=== PATIENT | female | born 1990 | race Caucasian/White ===

== ENCOUNTER 2020-05-29 19:37 | Emergency (ER) | payer OTHER, SELFPAY ==
--- NOTE | 2020-05-29 19:38 | ED.URI ---
HPI - URI/Sore Throat General Chief Complaint: Upper Respiratory Infection Stated Complaint: ear pain Time Seen by Provider: 05/29/20 19:38 Source: patient and RN notes reviewed History of Present Illness HPI Narrative: Patient is a 29-year-old female who presents the urgent care with complaints of a mild left-sided sore throat and left ear pain. Patient states that it started yesterday with the ear pain and she has taken Tylenol with some relief. Patient denies of putting anything in the ear such as Q-tips, peroxide, water. 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 Patient states she does have a history of strep throat. Denies of any other upper respiratory issues such as congestion, cough, shortness of breath. Denies of fever, chills, nausea, vomiting. No other acute complaints. No acute distress noted. Patient aware of the plan of care. Some parts of this dictation were generated by voice recognition software and may contain typographical and/or grammatical inaccuracies. Related Data Allergies Allergy/AdvReac Type Severity Reaction Status Date / Time dermabond Allergy Unknown Uncoded 05/29/20 19:51 Review of Systems Review of Systems: Narrative: CONSTITUTIONAL: Denies fever, chills, or sweats. EYES: Denies visual changes, redness, or discharge. ENT: Reports of left ear pain and sore throat CARDIOVASCULAR: Denies chest pain, palpitations, or edema. RESPIRATORY: Denies cough or dyspnea. GASTROINTESTINAL: Denies abdominal pain, nausea, vomiting, or diarrhea. GENITOURINARY: Denies dysuria or hematuria. SKIN: Denies rash or itching. MUSCULOSKELETAL: Denies back pain, joint pain, or myalgia. NEUROLOGIC: Denies headache, numbness, or weakness.All other systems reviewed are negative, except as documented in HPI. PMFSH Comments At the time of my signature, I reviewed and agree with the nursing past medical, surgical, social, and family history. There is no relevant family history pertinent to the patient complaint. Exam Narrative: Exam Narrative: GENERAL: This is a well-nourished, well-developed patient, in no apparent distress. HEAD: normocephalic, atraumatic. EYES: PERRL. Sclera clear/white. Vision is grossly intact. EARS: External ears normal, auditory canals clear and without drainage, mild cerumen noted bilaterally. TMs normal without perforation. Hearing grossly intact. NOSE: External nose normal with no obvious nasal discharge, nares without redness, no rhinorrhea. THROAT: Mucous membranes moist, posterior pharynx clear. NECK: Neck supple, mild tender left submandibular lymphadenopathy SKIN: warm, intact with no suspicious lesions or rash, good texture and turgor. NEURO: awake, alert, and oriented to person, place and time. There were no obvious focal neurologic abnormalities. EXTREMITIES: No clubbing, cyanosis, or edema. Course Vital Signs Vital signs: Vital Signs Temperature 98.5 F 05/29/20 19:51 Pulse Rate 79 05/29/20 19:51 Respiratory Rate 18 05/29/20 19:51 Blood Pressure 129/83 05/29/20 19:51 Pulse Oximetry 99 05/29/20 19:51 Temperature 98.5 F 05/29/20 19:51 Pulse Rate 79 05/29/20 19:51 Respiratory Rate 18 05/29/20 19:51 Blood Pressure 129/83 05/29/20 19:51 Pulse Oximetry 99 05/29/20 19:51 Reviewed MDM - URI/Sore Throat MDM Narrative Medical decision making narrative: Reviewed lab results with the patient. She is aware that strep swab was negative. However will treat due to assessment. Advised the patient to complete oral antibiotic regimen as prescribed. Make sure to eat and drink with medication. If you have any increase in symptoms associated with difficulty swallowing, high fevers, nausea, vomiting?follow-up with your PCP or in the emergency room if necessary. You may call and check on your culture results within the 3-day period and if your culture is negative for strep you may stop the antibiotics at that ti
[2020-05-29 19:51] VITALS: BP 129/83; PULSE 79; RESP 18; TEMP 36.9; O2SAT 99
== END 2020-05-29 20:09 | disposition home or self-care (01) ==
PROVIDERS: Emergency Provider Nurse Practitioner Family; PCP Nurse Practitioner
DX: H92.02 Otalgia, left ear (principal); J02.9 Acute pharyngitis, unspecified
CPT/HCPCS: 87081; 87880; 99203; G0463